=== PATIENT | male | born 1980 | race Caucasian/White ===

== ENCOUNTER → 2017-12-15 | Outpatient (REF) | payer BC | LOC: M SFHCLERA 17:57 | DX: J02.9 Acute pharyngitis, unspecified (principal) ==

== ENCOUNTER → 2022-06-02 | Outpatient (CLI) | payer OTHER | LOC: M RAD 13:22 | PROVIDERS: ATTEND Physician Assistant | DX: S52.514A Nondisplaced fracture of right radial styloid process, initial encounter for closed fracture (principal) ==

== ENCOUNTER → 2022-08-17 | Outpatient (CLI) | payer OTHER ==
[~2022-08-17] MED LIST: **SFHN** LIDOCAINE 1% MDV 20ML VIAL ONE; ISOVUE-300 61% 100ML VIAL ONE; PROHANCE 279.3MG/ML 5ML VIAL ONE
== END ==
LOC: M PLAIMG 12:30
PROVIDERS: ATTEND Physician Assistant
DX: S63.91XD Sprain of unspecified part of right wrist and hand, subsequent encounter (principal)
CPT/HCPCS: 25246; 73223; 76000; A9576; Q9967

== ENCOUNTER 2025-04-02 04:03 | Observation (INO) | payer BC, OTHER ==
[~2025-04-02] VITALS: Ht 180.3 cm; Wt 114.3 kg
[~2025-04-02 04:03] MED LIST changes: -**SFHN** LIDOCAINE 1% MDV 20ML VIAL ONE; +ALBU8.5H INH; -ISOVUE-300 61% 100ML VIAL ONE; +OMEP-173; +OZEM2INJ; -PROHANCE 279.3MG/ML 5ML VIAL ONE
[2025-04-02 04:30] LABS: BASO # 0.0 10^3/uL (0.0-0.2); BASO % 0.2 % (0.0-1.0); EOS # 0.0 10^3/uL (0.0-0.5); EOS % 0.3 % (0.0-3.0); LYMPH # 1.1 10^3/uL (1.5-5.0); LYMPH % 17.7 % (24.0-44.0); MONO # 0.4 10^3/uL (0.0-0.8); MONO % 6.5 % (2.0-8.0); NEUTROPHILS # 4.7 10^3/uL (1.5-8.5); NEUTROPHILS % 75.0 % (36.0-66.0); PLATELET COUNT, AUTOMATED 184 10^3/uL (150-450)
[2025-04-02 04:53] LABS: CK-MB VALUE MASS 1.0 NG/ML (<3.6)
[2025-04-02 04:55] LABS: CALCIUM LEVEL 8.8 MG/DL (8.5-10.1); CARBON DIOXIDE LEVEL 22 MMOL/L (20-31); CHLORIDE LEVEL 107 MMOL/L (98-107); CPK CREATINE PHOSPHOKINASE 102 U/L (46-171); CREATININE FOR GFR 0.86 MG/DL (0.70-1.30); GLOMERULAR FILTRATION RATE > 90.0 (>60); MB/CK RELATIVE INDEX 0.98 (< OR =4); POTASSIUM SERUM 4.3 MMOL/L (3.5-5.1); SODIUM LEVEL 139 MMOL/L (136-145)
[2025-04-02] MEDS ORDERED: ISOVUE-370 76% 100 ML VIAL As Ordered ONE (06:11)
[2025-04-02] MEDS: FAMOTIDINE IV BAG 20 MG in IV 1 EA IV ONE (06:58)
[2025-04-02] MEDS: NS (Normal Saline) 0.9% 1,000 ML IV ONE (06:58)
[2025-04-02] MEDS: SUCRALFATE 1 GM TAB PO ONE (07:03)
[2025-04-02] MEDS: PANTOPRAZOLE 40MG VIAL IV ONE (07:03)
[2025-04-02] MEDS: LIDOCAINE VISCOUS 2% SOLN 15 ML UDC SS ONE (07:05)
[2025-04-02 07:43] LABS: INR 0.97
[2025-04-02] MEDS ORDERED: OMEP40CA4 PO (08:06)
[2025-04-02] MEDS ORDERED: SEMA1PEN2 SQ (08:06)
[2025-04-02] MEDS ORDERED: IBUP-1764 PO (08:09)
[2025-04-02] MEDS ORDERED: HOME MED LIST COMPLETE! XX SCH (08:10)
[2025-04-02 13:22] LABS: C REACTIVE PROTEIN QUANTITATIV < 0.50 MG/DL (<1.0); CPK CREATINE PHOSPHOKINASE 94 U/L (46-171)
[2025-04-02] MEDS ORDERED: MAALOX 30 ML SUSP *UDC PO PRN (14:10)
[2025-04-02] MEDS ORDERED: DEXTROSE 50% 50 ML SYRINGE IV PRN (14:25)
[2025-04-02] MEDS ORDERED: GLUCOSE 4 GM CHEW PO PRN (14:25)
[2025-04-02] MEDS ORDERED: GLUCAGON INJ 1 MG VIAL SC PRN (14:25)
[2025-04-02 14:51] LABS: ALT/SGPT 46 U/L (7.0-40); AST/SGOT 31 U/L (<34)
[2025-04-02] MEDS ORDERED: ALBUTEROL 90 MCG/ACT 8 GM HFA INHALER INH PRN (15:00)
[2025-04-02 16:12] VITALS: BP 132/81; TEMP 97; O2SAT 98
[2025-04-02] MEDS: ACETAMINOPHEN 325 MG TAB PO PRN (16:23)
[2025-04-02 16:44] LABS: VENOUS BASE EXCESS -2.5 (-2.0-2.0); VENOUS HCO3 21.8 MMOL/L (23.0-27.0); VENOUS O2 SATURATION 97.8 % (60.0-80.0); VENOUS PARTIAL PRESSURE CO2 36.6 mmHg (38.0-50.0); VENOUS PARTIAL PRESSURE O2 99.4 mmHg (30.0-50.0); VENOUS PH 7.393 UNITS (7.330-7.430); VENOUS STANDARD HCO3 22.4 MMOL/L; VENOUS TOTAL CO2 22.9 MMOL/L (24.0-28.0)
[2025-04-02] MEDS ORDERED: KETOROLAC 30 MG/ML 1 ML VIAL IV PRN (17:00)
[2025-04-02] MEDS: INSULIN LISPRO (NovoLOG) PER UNIT SC SCH ×2 (17:10→21:00)
[2025-04-02 21:01] VITALS: BP 131/88; TEMP 97.9; O2SAT 95
[2025-04-02 21:03] VITALS: BP 131/88
[2025-04-02 21:08] VITALS: BP 131/88
[2025-04-02 21:12] VITALS: BP 132/87
[2025-04-02] MEDS: SUCRALFATE 1 GM TAB PO SCH (21:21)
[2025-04-02] MEDS: HEPARIN SOD 5000 UNITS/ML 1 ML VIAL/SYRINGE SC SCH (21:22)
[2025-04-03 00:19] VITALS: BP 110/82; TEMP 97.7; O2SAT 98
[2025-04-03 05:06] VITALS: BP 112/82; TEMP 97.7; O2SAT 98
[2025-04-03 06:56] LABS: BASO # 0.0 10^3/uL (0.0-0.2); BASO % 0.4 % (0.0-1.0); EOS # 0.1 10^3/uL (0.0-0.5); EOS % 1.1 % (0.0-3.0); LYMPH # 1.3 10^3/uL (1.5-5.0); LYMPH % 25.0 % (24.0-44.0); MONO # 0.4 10^3/uL (0.0-0.8); MONO % 6.9 % (2.0-8.0); NEUTROPHILS # 3.5 10^3/uL (1.5-8.5); NEUTROPHILS % 66.2 % (36.0-66.0); PLATELET COUNT, AUTOMATED 177 10^3/uL (150-450)
[2025-04-03 07:30] LABS: ALT/SGPT 50 U/L (7.0-40); AST/SGOT 40 U/L (<34); CALCIUM LEVEL 9.1 MG/DL (8.5-10.1); CARBON DIOXIDE LEVEL 24 MMOL/L (20-31); CHLORIDE LEVEL 106 MMOL/L (98-107); CREATININE FOR GFR 0.90 MG/DL (0.70-1.30); GLOMERULAR FILTRATION RATE > 90.0 (>60); MAGNESIUM LEVEL 1.7 MG/DL (1.8-2.4); POTASSIUM SERUM 4.3 MMOL/L (3.5-5.1); SODIUM LEVEL 141 MMOL/L (136-145)
[2025-04-03 08:25] VITALS: BP 113/82; TEMP 97.9; O2SAT 95
[2025-04-03] MEDS: MAG SULF 1GM/100ML (MAG RUN) 1 GM in IV 1 EA IV ONE (08:30)
[2025-04-03] MEDS: PANTOPRAZOLE 40MG VIAL IV SCH (08:31)
[2025-04-03] MEDS ORDERED: SUCR1TA PO (09:37)
[2025-04-03] MEDS ORDERED: PANT40TA29 PO (09:37)
[2025-04-03 12:06] VITALS: BP 122/71; TEMP 98.9; O2SAT 97
== END 2025-04-03 13:01 | disposition home or self-care (01) ==
LOC: M ED 04:03 → M ED INP 14:09 → M MSPAV 16:16
PROVIDERS: ADMIT Student in an Organized Health Care Education/Training Program; ATTEND Internal Medicine
DX: R07.9 Chest pain, unspecified (principal); K21.9 Gastro-esophageal reflux disease without esophagitis; R53.1 Weakness; R06.00 Dyspnea, unspecified; J45.909 Unspecified asthma, uncomplicated; R42 Dizziness and giddiness; E11.9 Type 2 diabetes mellitus without complications; K76.0 Fatty (change of) liver, not elsewhere classified; R20.2 Paresthesia of skin; Z87.891 Personal history of nicotine dependence; Z79.899 Other long term (current) drug therapy; Z88.2 Allergy status to sulfonamides; Z88.8 Allergy status to other drugs, medicaments and biological substances
CPT/HCPCS: 36415; 70544; 70547; 70551; 71045; 71275; 72141; 72146; 72148; 80048; 80053; 80076; 82550; 82553; 82803; 83605; 83690; 83735; 84145; 84484; 85025; 85610; 85652; 85730; 86140; 87486; 87581; 87633; 87798; 93005; 93041; 93306; 94760; 96361; 96372; 96374; 96375; 96376; 99285; J1308; J2060; J2470; J3475; Q9967